=== PATIENT | female | born 1955 | race Caucasian/White ===

== ENCOUNTER 2018-02-06 19:07 | Inpatient (IN) | payer BC ==
[2018-02-06] MEDS ORDERED: IOHEXOL 350 MG/ML 10 ML VIAL (for RAD DIAG) IVCONTRAST ONE (19:08)
[2018-02-06 19:13] VITALS: BP 201/94; PULSE 100; RESP 16; TEMP 99.3; O2SAT 96
[2018-02-06 19:38] VITALS: BP 195/96; PULSE 89; RESP 18; O2SAT 96
--- NOTE | 2018-02-06 19:55 | PD ---
HPI Chief Complaint: Abdominal Pain Time Seen by Provider: 19:42 Travel History International Travel<30 days: No Contact w/Intl Traveler<30days: No Traveled to known affect area: No History of Present Illness HPI 63yo F with PMH of HTN presents to the ED with c/o periumbilical abdominal pain today. Said pain is dull, achy and nonradiating. Nothing makes it better and lying down makes it worst. Pain is moderate in severity. Never had this pain before. Denies any fever, chest pain, sob, n/v, dysuria, hematuria, focal weakness or numbness. Pt did not take her lisinopril this morning because she was not feeling well. PFSH Past Medical History High Cholesterol: Yes Hypertension: Yes Influenza Vaccination: No ?: Not Past Surgical History Section: Yes (3X) Coronary Stent: Yes (2013) Social History Alcohol Use: Yes (Daily) Tobacco Use: No Substance Use: Yes (Marijuana) Allergies-Medications (Allergen,Severity, Reaction): Coded Allergies: No Known Drug Allergies (Verified Allergy, Unknown, 02/06/18) Reported Meds & Prescriptions Reported Meds & Active Scripts Active Reported Ezetimibe 10 Mg Tab 10 Mg PO DAILY Aspirin 81 Mg Chew 81 Mg CHEW DAILY Rosuvastatin (Rosuvastatin Calcium) 20 Mg Tab 20 Mg PO DAILY Citalopram (Citalopram Hydrobromide) 20 Mg Tab 25 Mg PO DAILY Lisinopril 10 Mg Tab 10 Mg PO DAILY Review of Systems Except as stated in HPI: all other systems reviewed are Neg Physical Exam Narrative GENERAL: 63yo F in mild distress. SKIN: Focused skin assessment warm/dry. HEAD: Atraumatic. Normocephalic. EYES: Pupils equal and round. No scleral icterus. No injection or drainage. ENT: No nasal bleeding or discharge. Mucous membranes pink and moist. NECK: Trachea midline. No JVD. CARDIOVASCULAR: Regular rate and rhythm. No murmur appreciated. RESPIRATORY: No accessory muscle use. Clear to auscultation. Breath sounds equal bilaterally. GASTROINTESTINAL: Abdomen soft, +TTP epigastric, periumbilical region. No rebound tenderness or guarding. MUSCULOSKELETAL: No obvious deformities. No clubbing. No cyanosis. No edema. NEUROLOGICAL: Awake and alert. No obvious cranial nerve deficits. Motor grossly within normal limits. Normal speech. PSYCHIATRIC: Appropriate mood and affect; insight and judgment normal. Data Data Last Documented VS Vital Signs Date Time Temp Pulse Resp B/P (MAP) Pulse Ox O2 Delivery O2 Flow Rate FiO2 02/06/18 20:35 90 18 198/82 (120) 97 Room Air 02/06/18 19:13 99.3 Orders Orders Complete Blood Count With Diff (02/06/18 19:46) Comprehensive Metabolic Panel (02/06/18 19:46) Lipase (02/06/18 19:46) Urinalysis - C+S If Indicated (02/06/18 19:46) Ct Abd/Pel W Iv Contrast(Rout) (02/06/18 19:46) Morphine Inj (Morphine Inj) (02/06/18 20:00) Lisinopril (Prinivil) (02/06/18 20:00) Lisinopril (Prinivil) (02/06/18 20:15) Sodium Chlor 0.9% 1000 Ml Inj (Ns 1000 M (02/06/18 21:00) Iohexol 350 Inj (Omnipaque 350 Inj) (02/06/18 19:08) Morphine Inj (Morphine Inj) (02/06/18 21:15) Piperacil-Tazo 3.375 Gm Premix (Zosyn 3. (02/06/18 21:15) Sodium Chlor 0.9% 1000 Ml Inj (Ns 1000 M (02/06/18 21:15) Labs Laboratory Tests Test 02/06/18 19:50 White Blood Count 15.3 TH/MM3 Red Blood Count 5.18 MIL/MM3 Hemoglobin 16.5 GM/DL Hematocrit 45.7 % Mean Corpuscular Volume 88.2 FL Mean Corpuscular Hemoglobin 31.8 PG Mean Corpuscular Hemoglobin Concent 36.0 % Red Cell Distribution Width 13.0 % Platelet Count 344 TH/MM3 Mean Platelet Volume 6.9 FL CBC Comment AUTO DIFF Differential Total Cells Counted 100 Neutrophils % (Manual) 84 % Band Neutrophils % 3 % Lymphocytes % 8 % Monocytes % 4 % Eosinophils % 1 % Neutrophils # (Manual) 13.3 TH/MM3 Differential Comment FINAL DIFF MANUAL Platelet Estimate NORMAL Platelet Morphology Comment NORMAL Red Cell Morphology Comment NORMAL Urine Color YELLOW Urine Turbidity CLEAR Urine pH 7.0 Urine Specific [place] 1.025 Urine Protein 100 mg/dL Urine Glucose (UA) NEG mg/dL Urine Ketones NEG mg/dL Urine Occult Blood SMALL Urine Nitrite NEG Urine Bilirubin NEG Urine Urobilinogen 0.2 MG/DL Urine Leukocyte Esterase NEG Urine RBC 3-5 /hpf Urine WBC 0-2 /hpf Urine Squamous Epithelial Cells 0-5 /hpf Urine Bacteria NONE /hpf Microscopic Urinalysis Comment CULT NOT INDICATED Creatinine 0.66 MG/DL Random Glucose 175 MG/DL Albumin 3.4 GM/DL Calcium Level 7.9 MG/DL Alkaline Phosphatase 64 U/L Total Bilirubin 0.9 MG/DL Sodium Level 133 MEQ/L Potassium Level 3.9 MEQ/L Chloride Level 99 MEQ/L Carbon Dioxide Level 21.2 MEQ/L Anion Gap 13 MEQ/L Estimat Glomerular Filtration Rate 91 ML/MIN Lipase 1135 U/L [facility] Medical Decision Making Medical Screen Exam Complete: Yes Emergency Medical Condition: Yes Differential Diagnosis Colitis vs. UTI vs. pancreatitis vs. gastritis Narrative Course 63yo F with periumbilical abdominal pain. Pt has tenderness in epigastric region on exam. Labs reviewed, leukocytosis of 15.3. Hemoglobin elevated at 16.5. Will give NS IVF. Lipase is elevated at 1135. No prior to compare to. UA showed negative WBC. Culture not indicated. CT a/p showed acute pancreatitis. No ductal dilatation or appreciable choledocholithiasis. Cholelithiasis. Pt said she does drink alcohol pretty much daily and have been drinking a lot since she is here on vacation from near [place]. Morphine 4mg helped with pain but still in some pain so given another dose. Pt given NS IVF x2 and zosyn. Will admit for acute pancreatitis. Discussed with Dr. Johnston's PA and accepted to her service. Diagnosis Primary Impression: Acute pancreatitis Qualified Codes: K85.20 - Alcohol induced acute pancreatitis without necrosis or infection Admitting Information Admitting Physician Requests: Admit Sydney Vargas DO Feb 06, 2018 19:55
[2018-02-06] MEDS ORDERED: LISI10TA3 PO (19:59)
[2018-02-06] MEDS ORDERED: EZET1TAB8 PO (19:59)
[2018-02-06] MEDS ORDERED: CITA20TA4 PO (19:59)
[2018-02-06] MEDS ORDERED: ROSU1TAB8 PO (19:59)
[2018-02-06] MEDS ORDERED: ASPI-516 CHEW (19:59)
[2018-02-06] MEDS ORDERED: MORPHINE SULFATE 4 MG/ML INJ IV PUSH ONE ×2 (20:00→21:15)
[2018-02-06] MEDS ORDERED: LISINOPRIL 10 MG TAB PO ONE (20:00)
[2018-02-06 20:07] LABS: BILIRUBIN, URINE NEG (NEG); BLOOD, URINE SMALL (NEG); GLUCOSE,URINE NEG (NEG); HEMATOCRIT 45.7 % (35.0-46.0); HEMOGLOBIN 16.5 GM/DL (11.6-15.3); KETONE, URINE NEG (NEG); MEAN CELL VOLUME 88.2 FL (80.0-100.0); MEAN CORPUSCULAR HEMOGLOBIN 31.8 PG (27.0-34.0); MEAN PLATELET VOLUME 6.9 FL (7.0-11.0); NITRITE,URINE NEG (NEG); PLATELET COUNT 344 TH/MM3 (150-450); RED BLOOD COUNT 5.18 MIL/MM3 (4.00-5.30); URINE COLOR YELLOW (YELLW/STRAW); URINE LEUKOCYTE ESTERASE NEG (NEG); WHITE BLOOD COUNT 15.3 TH/MM3 (4.0-11.0)
[2018-02-06 20:11] LABS: SQUAMOUS EPITHELIAL CELL URINE 0-5 /hpf (0-5); WBC, URINE 0-2 /hpf (0-5)
[2018-02-06 20:14] LABS: CHLORIDE 99 MEQ/L (98-107); SODIUM (NA) 133 MEQ/L (136-145)
[2018-02-06] MEDS ORDERED: LISINOPRIL 20 MG TAB PO ONE (20:15)
[2018-02-06 20:18] LABS: ALBUMIN 3.4 GM/DL (3.4-5.0); BICARBONATE 21.2 MEQ/L (21.0-32.0); CALCIUM 7.9 MG/DL (8.5-10.1); GLUCOSE,RANDOM 175 MG/DL (74-106)
[2018-02-06 20:21] LABS: CREATININE 0.66 MG/DL (0.50-1.00); GLOMERULAR FILTRATION RATE 91 ML/MIN (>89)
[2018-02-06 20:23] LABS: TOTAL BILIRUBIN ADULT 0.9 MG/DL (0.2-1.0)
[2018-02-06 20:24] LABS: ALKALINE PHOSPHATASE 64 U/L (45-117)
[2018-02-06 20:34] LABS: BANDS 3 % (0-6); LYMPHOCYTES 8 % (9-44); MONOCYTES 4 % (0-8); NEUTROPHIL # MANUAL DIFF 13.3 TH/MM3 (1.8-7.7); POLYS (SEG NEUTROPHILS) 84 % (16-70)
[2018-02-06 20:35] VITALS: BP 198/82; PULSE 90; RESP 18; O2SAT 97
[2018-02-06] MEDS ORDERED: SODIUM CHLOR 0.9% 1000 ML INJ 1,000 ML IV ONE ×2 (21:00→21:15)
--- NOTE | 2018-02-06 21:02 | RADRPT ---
EXAM DATE: 02/06/2018 8:50 PM EDT AGE/SEX: 63 years / Female INDICATIONS: Diffuse abdominal pain. CLINICAL DATA: This is the patient's initial encounter. Patient reports that signs and symptoms have been present for 1 day and indicates a pain score of 4/10. MEDICAL/SURGICAL HISTORY: Hypercholesterolemia. Hypertension. . Coronary stent. ORAL CONTRAST: No oral contrast ingested. RADIATION DOSE: 20.57 CTDI (mGy) COMPARISON: None. TECHNIQUE: Multiple contiguous axial images were obtained through the abdomen and pelvis following b olus infusion of 94 ml Omnipaque 350 (iohexol) nonionic water-soluble contrast as a single exam dos e. No oral contrast ingested. Using automated exposure control and adjustment of the mA and/or kV ac cording to patient size, radiation dose was kept as low as reasonably achievable to obtain optimal di agnostic quality images. DICOM format image data is available electronically for review and comparis on. FINDINGS: Lower Lungs: The visualized lower lungs are clear. Liver: The liver has a homogeneous density without space-occupying lesion. There is no dilation of th e biliary tree. Small calcified gallstones within a well distended gallbladder. No gallbladder wall t hickening or pericholecystic fluid. Spleen: Homogeneous density without enlargement. Pancreas: Edema involving the head of the pancreas with stranding of the peripancreatic fat. No duct al dilatation.. Kidneys: Normal in size and shape. Small cortical cysts involving the left kidney. No evidence of ma ss or hydronephrosis. Adrenal Glands: Unremarkable. Aorta: Calcified atherosclerotic plaque throughout the aorta and inflow vessels. No aneurysmal lester ge.. Bowel/Mesentery: The bowel loops are grossly unremarkable. The cecum and sigmoid colon have a normal configuration. Abdominal Wall: Intact. Retroperitoneum: No evidence of adenopathy in the retrocrural, para-aortic, or deep pelvic regions. Bladder: Contours are smooth. Reproductive Organs: No abnormal masses or calcifications seen. Inguinal: The inguinal region is unremarkable without evidence of adenopathy. Bony Structures: A degenerative lumbar spine. CONCLUSION: 1. Acute pancreatitis. No ductal dilatation or appreciable choledocholithiasis. 2. Cholelithiasis. Electronically signed by: Octaviano Bowen MD 02/06/2018 9:01 PM EDT
[2018-02-06] MEDS ORDERED: PIPERACIL-TAZO 3.375 GM PREMIX 50 ML IV ONE (21:15)
[2018-02-06 21:21] LABS: ALT (GPT) 40 U/L (10-53); AST (GOT) 34 U/L (15-37)
[2018-02-06 21:22] LABS: BLOOD UREA NITROGEN 12 MG/DL (7-18)
[2018-02-06 21:30] VITALS: BP 199/97; PULSE 104; RESP 18; O2SAT 96
[2018-02-06] MEDS ORDERED: SODIUM CHLORIDE 0.9% FLUSH 10 ML FLUSH IV FLUSH PRN (21:30)
[2018-02-06] MEDS ORDERED: NALOXONE HCL 0.4 MG/ML AMP IV PUSH PRN (21:30)
[2018-02-06] MEDS ORDERED: ENALAPRILAT 2.5 MG/2 ML VIAL IV PUSH PRN (21:30)
[2018-02-06] MEDS ORDERED: MORPHINE SULFATE 4 MG/ML INJ IV PUSH PRN (21:45)
[2018-02-06 22:34] VITALS: BP 183/69; PULSE 102; RESP 18; O2SAT 96
[2018-02-06] MEDS: SODIUM CHLOR 0.9% 1000 ML INJ 1,000 ML IV SCH (22:58)
[2018-02-06 23:04] VITALS: BP 177/74
[2018-02-07] VITALS: BP 185/82; PULSE 106; RESP 20; TEMP 100; O2SAT 95
[2018-02-07] MEDS ORDERED: PROCHLORPERAZINE INJ 10 MG/2 ML VIAL IV PUSH PRN (01:45)
[2018-02-07] MEDS: SODIUM CHLOR 0.9% 1000 ML INJ 1,000 ML IV SCH ×3 (04:44→11:11)
[2018-02-07 06:21] LABS: CALCIUM 8.3 MG/DL (8.5-10.1); HEMATOCRIT 39.7 % (35.0-46.0); MEAN CELL VOLUME 86.4 FL (80.0-100.0); MEAN CORPUSCULAR HEMOGLOBIN 30.4 PG (27.0-34.0); MEAN CORPUSCULAR HGB CONC 35.2 % (32.0-36.0); MEAN PLATELET VOLUME 7.1 FL (7.0-11.0); PLATELET COUNT 327 TH/MM3 (150-450); RED CELL DISTRIBUTION WIDTH 13.4 % (11.6-17.2); WHITE BLOOD COUNT 15.1 TH/MM3 (4.0-11.0)
[2018-02-07 06:22] LABS: BICARBONATE 23.7 MEQ/L (21.0-32.0)
[2018-02-07 06:25] LABS: CREATININE 0.5 MG/DL (0.50-1.00)
[2018-02-07 06:57] LABS: BANDS 1 % (0-6); LYMPHOCYTES 16 % (9-44); MONOCYTES 6 % (0-8); NEUTROPHIL # MANUAL DIFF 11.8 TH/MM3 (1.8-7.7); POLYS (SEG NEUTROPHILS) 77 % (16-70)
[2018-02-07] MEDS ORDERED: ACETAMINOPHEN/HYDROcodone 325 MG/10 MG TAB PO PRN (07:15)
[2018-02-07] MEDS ORDERED: ACETAMINOPHEN/HYDROcodone 325 MG/5 MG TAB PO PRN (07:15)
[2018-02-07] MEDS ORDERED: hydrALAZINE HCL 20 MG/ML VIAL IV PUSH PRN (07:30)
[2018-02-07 08:00] VITALS: BP 150/70; PULSE 104; RESP 16; TEMP 99.8; O2SAT 96
[2018-02-07] MEDS ORDERED: MORPHINE SULFATE 2 MG/ML SYRINGE IV PUSH PRN (08:00)
[2018-02-07] MEDS ORDERED: ASPIRIN 81 MG CHEW TAB CHEW SCH (09:00)
[2018-02-07] MEDS ORDERED: LISINOPRIL 10 MG TAB PO SCH (09:00)
[2018-02-07] MEDS ORDERED: SODIUM CHLORIDE 0.9% FLUSH 10 ML FLUSH IV FLUSH SCH (09:00)
[2018-02-07] MEDS ORDERED: CITALOPRAM HYDROBROMIDE 20 MG TAB PO SCH (09:18)
--- NOTE | 2018-02-07 10:54 | HHI.HP ---
[facility] Non-Staff Admission Diagnosis Acute pancreatitis Diagnoses: (1) Acute pancreatitis Diagnosis: Principal Chief Complaint: Abdominal pain Travel History International Travel<30 Days: No Contact w/Intl Traveler <30 Da: No Traveled to Known Affected Are: No History of Present Illness 63-year-old female with known history of hypertension, hyperlipidemia, coronary artery disease, alcohol use who presented to the emergency department because of abdominal discomfort. Patient states that she is down here on vacation and has been doing some extra partaking of alcoholic beverages and she got sudden onset of abdominal pain yesterday which she describes as around her mid abdomen which was 8/10 on a pain scale. She did not have any nausea, vomiting, diarrhea. If she would have those symptoms she would have thought that she just had a stomach bug. However she came to emergency department had laboratory studies performed which did show elevated lipase, she also had CT scan done which did show acute pancreatitis. Patient was admitted the hospital for further evaluation and management. Patient is tolerating liquid diet at this time she is no longer experiencing any significant pain she has not required any pain medication since 130 this morning. She states that the only time that she had any nausea and retching was after she was given morphine. Patient is eager to be discharged. She states that she is feeling much better. Review of Systems Gastrointestinal: COMPLAINS OF: Abdominal pain Except as stated in HPI: all other systems reviewed are Neg Past Family Social History Past Medical History Hypertension Hyperlipidemia Coronary disease Alcohol use Past Surgical History Cardiac catheterization with stenting 3 Reported Medications Reported Meds & Active Scripts Active Reported Ezetimibe 10 Mg Tab 10 Mg PO DAILY Aspirin 81 Mg Chew 81 Mg CHEW DAILY Rosuvastatin (Rosuvastatin Calcium) 20 Mg Tab 20 Mg PO DAILY Citalopram (Citalopram Hydrobromide) 20 Mg Tab 25 Mg PO DAILY Lisinopril 10 Mg Tab 10 Mg PO DAILY Allergies: Coded Allergies: No Known Drug Allergies (Verified Allergy, Unknown, 02/06/18) Family History Reviewed is significant for mother still alive at 88 in good health. Father at age 79 from heart disease Social History Patient drinks at least 4-6 beers daily. She does smoke marijuana daily. Denies any tobacco use Physical Exam Vital Signs Vital Signs Date Time Temp Pulse Resp B/P (MAP) Pulse Ox O2 Delivery O2 Flow Rate FiO2 02/07/18 08:00 99.8 104 16 150/70 (96) 96 02/07/18 00:00 106 02/07/18 00:00 100.0 106 20 185/82 (116) 95 02/06/18 23:04 100 18 177/74 (108) 97 02/06/18 22:34 102 18 183/69 (107) 96 Room Air 02/06/18 21:30 104 18 199/97 (131) 96 Room Air 02/06/18 21:25 16 02/06/18 20:35 90 18 198/82 (120) 97 Room Air 02/06/18 20:15 18 02/06/18 19:38 89 18 195/96 (129) 96 Room Air 02/06/18 19:38 18 02/06/18 19:13 99.3 100 16 201/94 (129) 96 Physical Exam GENERAL: Well-developed, well-nourished, in no acute distress. alert and orientated HEENT: Head is normocephalic without any lesions or masses noted. Facial features are symmetric. Eyes: Pupils equal round reactive to light. Extraocular muscles are intact. Conjunctivae were clear. Oropharyngeal: Pharynx without any erythema edema. Tongue is midline without deviation. Buccal mucosa is moist without any masses or lesions NECK: Supple without any masses. Trachea midline no deviation. No JVD, no bruits are appreciated CARDIAC: Regular rhythm, regular rate. S1/S2 are heard. No murmurs gallops or rubs. LUNGS: Clear to auscultation bilaterally. No wheeze, rhonchi or rales. No use of accessory muscles on inspiration or expiration. ABDOMEN: Soft, mild diffuse abdominal tenderness. Nondistended. Bowel sounds heard in all 4 quadrants. No organomegaly or masses. Negative rebound, negative guarding EXTREMITIES: No edema, pulses are equal bilaterally. No cyanosis or clubbing NEUROLOGY: Mood and affect appear appropriate. Cranial nerves II through XII grossly intact. Muscle strength 5/5 in upper and lower extremities bilaterally. Deep tendon reflexes are 2+ in upper and lower extremities bilaterally. Laboratory Laboratory Tests Test 02/06/18 19:50 6/22/18 06:00 White Blood Count 15.3 15.1 Red Blood Count 5.18 4.60 Hemoglobin 16.5 14.0 Hematocrit 45.7 39.7 Mean Corpuscular Volume 88.2 86.4 Mean Corpuscular Hemoglobin 31.8 30.4 Mean Corpuscular Hemoglobin Concent 36.0 35.2 Red Cell Distribution Width 13.0 13.4 Platelet Count 344 327 Mean Platelet Volume 6.9 7.1 CBC Comment AUTO DIFF AUTO DIFF Differential Total Cells Counted 100 100 Neutrophils % (Manual) 84 77 Band Neutrophils % 3 1 Lymphocytes % 8 16 Monocytes % 4 6 Eosinophils % 1 Neutrophils # (Manual) 13.3 11.8 Differential Comment FINAL DIFF MANUAL FINAL DIFF MANUAL Platelet Estimate NORMAL NORMAL Platelet Morphology Comment NORMAL NORMAL Red Cell Morphology Comment NORMAL NORMAL Urine Color YELLOW Urine Turbidity CLEAR Urine pH 7.0 Urine Specific [place] 1.025 Urine Protein 100 Urine Glucose (UA) NEG Urine Ketones NEG Urine Occult Blood SMALL Urine Nitrite NEG Urine Bilirubin NEG Urine Urobilinogen 0.2 Urine Leukocyte Esterase NEG Urine RBC 3-5 Urine WBC 0-2 Urine Squamous Epithelial Cells 0-5 Urine Bacteria NONE Microscopic Urinalysis Comment CULT NOT INDICATED Blood Urea Nitrogen 12 7 Creatinine 0.66 0.50 Random Glucose 175 134 Total Protein 8.0 Albumin 3.4 Calcium Level 7.9 8.3 Alkaline Phosphatase 64 Aspartate Amino Transf (AST/SGOT) 34 Alanine Aminotransferase (ALT/SGPT) 40 Total Bilirubin 0.9 Sodium Level 133 136 Potassium Level 3.9 3.8 Chloride Level 99 103 Carbon Dioxide Level 21.2 23.7 Anion Gap 13 9 Estimat Glomerular Filtration Rate 91 125 Lipase 1135 528 Result Diagram: 02/07/18 0600 02/07/18 06 Imaging Last Impressions Abdomen/Pelvis CT 02/06/18 194 Signed Impressions: CONCLUSION: 1. Acute pancreatitis. No ductal dilatation or appreciable choledocholithiasis . 2. Cholelithiasis. Caprini VTE Risk Assessment Caprini VTE Risk Assessment: No/Low Risk (score <= 1) Caprini Risk Assessment Model Point Value = 1 Point Value = 2 Point Value = 3 Point Value = 5 Age 41-60 Minor surgery BMI > 25 kg/m2 Swollen legs Varicose veins or History of unexplained or recurrent spontaneous Oral contraceptives or hormone replacement Sepsis (< 1 month) Serious lung disease, including pneumonia (< 1 month) Abnormal pulmonary function Acute myocardial infarction Congestive heart failure (< 1 month) History of inflammatory bowel disease Medical patient at bed rest Age 61-74 Arthroscopic surgery Major open surgery (> 45 min) Laparoscopic surgery (> 45 min) Malignancy Confined to bed (> 72 hours) Immobilizing plaster cast Central venous access Age >= 75 History of VTE Family history of VTE Factor V Leiden Prothrombin [id number] Lupus anticoagulant Anticardiolipin antibodies Elevated serum homocysteine Heparin-induced thrombocytopenia Other congenital or acquired thrombophilia Stroke (< 1 month) Elective arthroplasty Hip, pelvis, or leg fracture Acute spinal cord injury (< 1 month) Prophylaxis Regimen Total Risk Factor Score Risk Level Prophylaxis Regimen 0-1 Low Early ambulation 2 Moderate Order ONE of the following: *Sequential Compression Device (SCD) *Heparin 5000 units SQ BID 3-4 Higher Order ONE of the following medications: *Heparin 5000 units SQ TID *Enoxaparin/Lovenox 40 mg SQ daily (WT < 150 kg, CrCl > 30 mL/min) *Enoxaparin/Lovenox 30 mg SQ daily (WT < 150 kg, CrCl > 10-29 mL/min) *Enoxaparin/Lovenox 30 mg SQ BID (WT < 150 kg, CrCl > 30 mL/min) AND/OR *Sequential Compression Device (SCD) 5 or more Highest Order ONE of the following medications: *Heparin 5000 units SQ TID (Preferred with Epidurals) *Enoxaparin/Lovenox 40 mg SQ daily (WT < 150 kg, CrCl > 30 mL/min) *Enoxaparin/Lovenox 30 mg SQ daily (WT < 150 kg, CrCl > 10-29 mL/min) *Enoxaparin/Lovenox 30 mg SQ BID (WT < 150 kg, CrCl > 30 mL/min) AND *Sequential Compression Device (SCD) Assessment and Plan Assessment and Plan Systemic inflammatory response syndrome -Patient meets criteria on presentation with leukocytosis, tachycardia, pancreatitis -Continue IV fluids -No source of infection has been identified, urinalysis was clear, chest x-ray clear, influenza testing negative, urinalysis unremarkable Acute pancreatitis -Multifactorial with patient having chronic alcohol use, significant triglyceride level, gallstones -Continue IV fluids -Patient tolerating clear liquid diet -Lipase level has already trended downward -Pain control Hyperlipidemia with hypertriglyceridemia -Continue home Crestor and statin -Start TriCor 145 mg daily Accelerated hypertension -Patient noncompliant during her vacation, will resume patient's home medications and monitor blood pressure -Blood pressure improved after resumption of her home medication Leukocytosis -Could be reactive to inflammatory process -No infectious source has been identified Coronary artery disease, hyperlipidemia -We will hold statins at this time secondary patient with acute pancreatitis -Continue aspirin DVT prevention -Sequential compression devices Discharge disposition Discharge home in stable condition Activity: Ad helder. Diet: Healthy heart diet Medication per medication reconciliation Follow-up with primary medical doctor in 1 week Problem Qualifiers (1) Acute pancreatitis: Johnie Oliver Feb 07, 2018 10:54
[2018-02-07 12:00] VITALS: BP 129/60; PULSE 99; RESP 17; TEMP 99.6; O2SAT 95
[2018-02-07] MEDS ORDERED: HYDR-3516 PO (13:36)
[2018-02-07] MEDS ORDERED: FENO50TA PO (13:36)
--- NOTE | 2018-02-07 13:37 | HHI.DCPOC ---
Discharge Care Plan Diagnosis: (1) Acute pancreatitis Goals to Promote Your Health * To prevent worsening of your condition and complications * To maintain your health at the optimal level Directions to Meet Your Goals Take your medications as prescribed Follow your dietary instruction Follow activity as directed Keep your appointments as scheduled Take your immunizations and boosters as scheduled If your symptoms worsen call your PCP, if no PCP go to Urgent Care Center or Emergency Room Smoking is Dangerous to Your Health. Avoid second hand smoke Call the 24-hour hour crisis hotline for domestic abuse at Johnie Oliver Feb 07, 2018 13:37
--- NOTE | 2018-02-07 15:21 | RADRPT ---
EXAM DATE: 02/07/2018 1:19 PM EDT AGE/SEX: 63 years / Female INDICATIONS: Fever. Vomiting CLINICAL DATA: This is the patient's initial encounter. Patient reports that signs and symptoms have been present for 2 days and indicates a pain score of 3/10. MEDICAL/SURGICAL HISTORY: Hypertension. Hypercholesterolemia. Coronary artery stent. COMPARISON: No prior exams available for comparison. FINDINGS: The heart size is normal. There is diffuse prominence of interstitium. Costophrenic angles are clear. Hilar structures are normal. Bony structures are intact. CONCLUSION: Diffuse interstitial process. This could be related to diffuse interstitial disease. Electronically signed by: Remigio Shukla MD 02/07/2018 3:20 PM EDT
== END 2018-02-07 15:02 | disposition home or self-care (01) | DRG 440 ==
LOC: PHED 19:07 → PHEDA 21:24 → PH3A 23:16
PROVIDERS: ADMIT Hospitalist; ATTEND Hospitalist
DX: K85.20 Alcohol induced acute pancreatitis without necrosis or infection (principal); I10 Essential (primary) hypertension; E78.5 Hyperlipidemia, unspecified; E78.1 Pure hyperglyceridemia; F12.10 Cannabis abuse, uncomplicated; D72.829 Elevated white blood cell count, unspecified; I25.10 Atherosclerotic heart disease of native coronary artery without angina pectoris; Z79.82 Long term (current) use of aspirin; Z79.899 Other long term (current) drug therapy
CPT/HCPCS: 71046; 74177; 80048; 80053; 81001; 83690; 84478; 85007; 85027; 87040; 87804; 96374; 96375; 96376; J0780; J2270; J2543; J7030; Q9967